=== PATIENT | male | born 1985 | race Two or more races ===

== ENCOUNTER → 2019-08-26 | Outpatient (CLI) | payer SELFPAY ==
--- NOTE | 2019-08-27 08:54 | EEG ---
DATE OF SERVICE: 08/26/2019 EEG NUMBER: [id number]. OBJECTIVE: The patient is a 33-year-old male with memory loss. DESCRIPTION: This is a digital study. Electrodes are placed according to the international 10-20 system. Bipolar and referential montages are available. Activation procedures typically include hyperventilation and intermittent photic stimulation. INTERPRETATION: The waking background consists of 9-10 Hz, 50-100 microvolt activity, symmetrically distributed over parietooccipital regions and reactive to eye opening. Hyperventilation and intermittent photic stimulation are noncontributory. Stage 1 sleep is achieved with normal electroencephalogram patterns. IMPRESSION: This electroencephalogram with the patient awake and asleep is within normal limits. There is no focal, paroxysmal, or epileptiform activity. Thank you for letting us help with the patient's care. FAVIO RAMIREZ MD DR: ELIZABETH/lopez JOB#: [id number] / [id number]
== END | disposition home or self-care (01) ==
LOC: RT 06:43
PROVIDERS: ATTEND Psychiatry & Neurology Neurology
DX: R41.3 Other amnesia (principal)
CPT/HCPCS: 95816

== ENCOUNTER → 2019-09-30 | Outpatient (CLI) | payer OTHER ==
[~2019-09-30] MED LIST: GADOTERATE 7.5 MMOL/15ML VIAL. IVP ONE
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
== END ==
LOC: MRI 10:14
PROVIDERS: ATTEND Family Medicine
DX: R51 Headache (principal); F25.0 Schizoaffective disorder, bipolar type
CPT/HCPCS: 70553; A9575